=== PATIENT | male | born 1980 | race Two or more races ===

== ENCOUNTER 2018-12-18 09:17 | Emergency (ER) | payer MEDICAID, OTHER ==
[~2018-12-18] VITALS: Ht 190.5 cm; Wt 96.6 kg
[2018-12-18 09:28] VITALS: BP 147/100
[2018-12-18] MEDS ORDERED: KETOROLAC TROMETH 60MG/2ML VIAL IM ONE (11:15)
== END 2018-12-18 11:39 | disposition home or self-care (01) ==
LOC: ER 09:17
DX: M50.323 Other cervical disc degeneration at C6-C7 level (principal); M54.12 Radiculopathy, cervical region
CPT/HCPCS: 72040

== ENCOUNTER 2024-04-26 12:52 | Inpatient (IN) | payer MEDICAID ==
[~2024-04-26] VITALS: Ht 188 cm; Wt 70.7 kg
[2024-04-26 13:07] LABS: Basophils # (auto) 0 10 ^3/uL (0-0.2); Basophils % (auto) 0.8 % (0.0-2.0); Eosinophils # (auto) 0 10 ^3/uL (0-0.8); Eosinophils % (auto) 0.8 % (0.0-7.0); Hematocrit 47.1 % (41.0-53.0); Hemoglobin 16.2 g/dL (13.5-17.5); Lymphocytes # (auto) 1.7 10 ^3/uL (0.4-5.4); Lymphocytes % (auto) 46.7 % (10.0-50.0); Mean Corpuscular Hemoglobin 33.6 pg (28.0-32.0); Mean Corpuscular Hgb Conc. 34.3 g/dL (32.0-36.0); Mean Corpuscular Volume 97.8 fL (80.0-100.0); Monocytes # (auto) 0.3 10 ^3/uL (0-1.3); Monocytes % (auto) 8.5 % (0.0-12.0); Neutrophils # (auto) 1.6 10 ^3/uL (1.6-8.6); Neutrophils % (auto) 43.2 % (37.0-80.0); Nucleated Red Blood Cells % 0.3 %; Red Blood Cells 4.82 10^6/uL (4.5-5.90); Red Cell Distribution Width 14.4 % (11.8-14.3); White Blood Cell 3.7 10^3/uL (4.4-10.8)
[2024-04-26 13:25] LABS: Alanine Aminotransferase 184 U/L (7-40); Albumin 4.1 g/dL (3.2-4.8); Alkaline Phosphatase 292 U/L (46-116); Anion Gap 6 (5-15); Aspartate Aminotransferase 338 U/L (13-40); BUN/Creatinine Ratio 16.3 (10.0-20.0); Blood Urea Nitrogen 14 mg/dL (9-23); Calcium 8.5 mg/dL (8.5-10.1); Carbon Dioxide 23 mmol/L (20-30); Chloride 108 mmol/L (98-107); Glucose 179 mg/dL (74-106); Potassium 3.4 mmol/L (3.5-5.1); Sodium 137 mmol/L (136-145)
[2024-04-26 13:26] LABS: Bilirubin, Total 0.6 mg/dL (0.2-1.0); Total Protein 6.3 g/dL (5.7-8.2)
[2024-04-26 13:35] LABS: INR 1.24 (0.9-1.15); Partial Thromboplastin Time 27.3 SEC (24.5-34.5); Prothrombin Time 12.9 sec (9.3-11.8)
[2024-04-26] MEDS: ASPirin-EC 325mg tab PO ONE (14:41)
[2024-04-26] MEDS ORDERED: ONDANSETRON HCL 4 MG/2 ML VIAL IV PRN (16:00)
[2024-04-26] MEDS ORDERED: ACETAMINOPHEN 325 MG TAB PO PRN (16:00)
[2024-04-26] MEDS ORDERED: MORPHINE SULFATE INJ 2 MG/ml SYRG IV PRN (16:00)
[2024-04-26] MEDS ORDERED: NITROGLYCERIN 0.4 MG SL TAB SL PRN (16:00)
[2024-04-26] MEDS ORDERED: HYDROcodone-ACET 5/325MG TAB PO PRN (16:00)
[2024-04-26 16:28] LABS: Urine Bacteria None Seen /hpf (None Seen)
[2024-04-26 16:40] LABS: Urine Blood Negative /uL (Negative); Urine Clarity Clear (Clear); Urine Color Yellow (Yellow); Urine Mucus FEW (None Seen); Urine Protein, UAD TRACE (Negative); Urine Specific Gravity 1.028 (1.001-1.035); Urine Urobilinogen Normal (Negative); Urine WBC 1 /hpf (0 - 3); Urine pH 5.5 (5.0-9.0)
[2024-04-26 16:47] LABS: Amphetamine Screen, Urine Neg (NEGATIVE); Barbiturate Scree,Urine Neg (NEGATIVE); Benzodiazephine Screen, Urine Neg (NEGATIVE); Cocaine Screen, Urine Neg (NEGATIVE)
[2024-04-26 16:48] LABS: Cannabinoid Screen, Urine Neg (NEGATIVE); Opiate Scree,Urine Neg (NEGATIVE); Phencyclidine Screen, Urine Neg (NEGATIVE)
[2024-04-26 17:00] VITALS: BP 142/84; PULSE 72; RESP 18; TEMP 97.8; O2SAT 100
[2024-04-26] MEDS: MORPHINE SULFATE INJ 2 MG/ml SYRG IV PRN (17:40)
[2024-04-26 18:37] VITALS: PULSE 73
[2024-04-26 20:00] VITALS: PULSE 67; PULSE 70; RESP 17; O2SAT 99
[2024-04-26 22:00] VITALS: BP 134/79; PULSE 70; RESP 17; TEMP 98.1; O2SAT 99
[2024-04-27] VITALS (8 sets, daily range): BP systolic 126–145; BP diastolic 80–88; PULSE 52–63; RESP 16–18; TEMP 97.9–98.2; O2SAT 95–99
[2024-04-27 07:03] LABS: Basophils # (auto) 0 10 ^3/uL (0-0.2); Basophils % (auto) 0.8 % (0.0-2.0); Eosinophils # (auto) 0.1 10 ^3/uL (0-0.8); Eosinophils % (auto) 1.5 % (0.0-7.0); Hematocrit 42.2 % (41.0-53.0); Hemoglobin 14.3 g/dL (13.5-17.5); Lymphocytes # (auto) 1.8 10 ^3/uL (0.4-5.4); Lymphocytes % (auto) 48.9 % (10.0-50.0); Mean Corpuscular Hemoglobin 33.3 pg (28.0-32.0); Monocytes # (auto) 0.3 10 ^3/uL (0-1.3); Monocytes % (auto) 8.6 % (0.0-12.0); Neutrophils # (auto) 1.5 10 ^3/uL (1.6-8.6); Neutrophils % (auto) 40.2 % (37.0-80.0); Nucleated Red Blood Cells % 0.1 %; Red Blood Cells 4.31 10^6/uL (4.5-5.90); Red Cell Distribution Width 14.2 % (11.8-14.3); White Blood Cell 3.7 10^3/uL (4.4-10.8)
[2024-04-27 07:05] LABS: Alanine Aminotransferase 252 U/L (7-40); Albumin 3.1 g/dL (3.2-4.8); Alkaline Phosphatase 273 U/L (46-116); Anion Gap 7 (5-15); Aspartate Aminotransferase 550 U/L (13-40); BUN/Creatinine Ratio 10.3 (10.0-20.0); Blood Urea Nitrogen 7 mg/dL (9-23); Calcium 8.2 mg/dL (8.7-10.4); Carbon Dioxide 23 mmol/L (20-30); Chloride 103 mmol/L (98-107); Glucose 104 mg/dL (74-106); Potassium 3.5 mmol/L (3.5-5.1); Sodium 133 mmol/L (136-145)
[2024-04-27 07:06] LABS: Total Protein 5.4 g/dL (5.7-8.2)
[2024-04-27] MEDS ORDERED: COLC1CAP PO (07:12)
[2024-04-27] MEDS ORDERED: GABA-1250 PO (07:12)
[2024-04-27] MEDS ORDERED: TRAZ-227 PO (07:12)
[2024-04-27] MEDS ORDERED: PERCOT PO (07:12)
[2024-04-27] MEDS ORDERED: ALLO100T PO (07:12)
[2024-04-27] MEDS ORDERED: BUPR75TA89 GT (07:12)
[2024-04-27] MEDS: ENOXAPARIN SOD 40 MG/0.4 ML SYRINGE SC SCH (10:00)
== END 2024-04-27 18:52 | disposition home or self-care (01) | DRG 207 ==
LOC: ER 12:52 → TELE 15:52 → TELE-CENTR 16:56
PROVIDERS: ADMIT Internal Medicine; ATTEND Internal Medicine
DX: R00.2 Palpitations (principal); F17.210 Nicotine dependence, cigarettes, uncomplicated; I10 Essential (primary) hypertension; G89.29 Other chronic pain; M54.50 Low back pain, unspecified; J45.909 Unspecified asthma, uncomplicated; R79.89 Other specified abnormal findings of blood chemistry; Z91.148 Patient's other noncompliance with medication regimen for other reason; Z79.891 Long term (current) use of opiate analgesic; Z90.49 Acquired absence of other specified parts of digestive tract; Z80.1 Family history of malignant neoplasm of trachea, bronchus and lung
CPT/HCPCS: 36415; 71045; 76705; 80053; 80307; 81001; 84484; 85025; 85610; 85730; 87081; 93005; 93306; 99291; G0378

== ENCOUNTER 2024-05-17 11:07 | Observation (INO) | payer MEDICAID ==
[~2024-05-17] VITALS: Ht 188 cm; Wt 70.0 kg
[~2024-05-17 11:07] MED LIST: ALLO100T PO; BUPR75TA89 GT; COLC1CAP PO; GABA-1250 PO; TRAZ-227 PO
[2024-05-17 11:48] LABS: Basophils # (auto) 0 10 ^3/uL (0-0.2); Eosinophils # (auto) 0 10 ^3/uL (0-0.8); Lymphocytes # (auto) 1.3 10 ^3/uL (0.4-5.4); Neutrophils % (auto) 76.9 % (37.0-80.0)
[2024-05-17 11:49] LABS: Basophils % (auto) 0.5 % (0.0-2.0); Hematocrit 42.6 % (41.0-53.0); Hemoglobin 14.9 g/dL (13.5-17.5); Lymphocytes % (auto) 16.4 % (10.0-50.0); Mean Corpuscular Hemoglobin 34.4 pg (28.0-32.0); Mean Corpuscular Volume 98.4 fL (80.0-100.0); Monocytes # (auto) 0.5 10 ^3/uL (0-1.3); Monocytes % (auto) 6.2 % (0.0-12.0); Neutrophils # (auto) 6.3 10 ^3/uL (1.6-8.6); Red Blood Cells 4.33 10^6/uL (4.5-5.90); Red Cell Distribution Width 14.5 % (11.8-14.3); White Blood Cell 8.2 10^3/uL (4.4-10.8)
[2024-05-17 12:01] LABS: Alanine Aminotransferase 98 U/L (7-40); Alkaline Phosphatase 214 U/L (46-116); Anion Gap 12 (5-15); Aspartate Aminotransferase 137 U/L (13-40); Bilirubin, Total 0.6 mg/dL (0.2-1.0); Calcium 8.7 mg/dL (8.7-10.4); Carbon Dioxide 23 mmol/L (20-30); Chloride 97 mmol/L (98-107); Glucose 345 mg/dL (74-106); Sodium 132 mmol/L (136-145); Total Protein 6.4 g/dL (5.7-8.2)
[2024-05-17 12:12] LABS: Potassium 2.2 mmol/L (3.5-5.1)
[2024-05-17 12:22] LABS: BUN/Creatinine Ratio 10.2 (10.0-20.0); Blood Urea Nitrogen 9 mg/dL (9-23)
[2024-05-17 13:13] LABS: Urine Bacteria FEW /hpf (None Seen); Urine Blood TRACE /uL (Negative); Urine Clarity Clear (Clear); Urine Color Yellow (Yellow); Urine Mucus FEW (None Seen); Urine Protein, UAD 1+ (Negative); Urine Specific Gravity 1.039 (1.001-1.035); Urine Urobilinogen Normal (Negative); Urine WBC 5 /hpf (0 - 3)
[2024-05-17] MEDS: POTASSIUM EFFERVESENT TAB 25 MEQ PO ONE (13:25)
[2024-05-17] MEDS: SODIUM CHLORIDE 0.9% 1,000 ML IV ONE (13:37)
[2024-05-17] MEDS: InsuLIN REG 1unit/0.01ml Soln (100units/ml) IV ONE (13:46)
[2024-05-17] MEDS ORDERED: MORPHINE SULFATE INJ 2 MG/ml SYRG IV PRN (14:00)
[2024-05-17] MEDS ORDERED: NITROGLYCERIN 0.4 MG SL TAB SL PRN (14:00)
[2024-05-17] MEDS: POTASSIUM CHL 20MEQ/100ML 100 ML IV SCH (16:00)
[2024-05-17] MEDS: InsuLIN REG 1unit/0.01ml Soln (100units/ml) SC SCH (17:00)
[2024-05-17] MEDS: ACCU-CHEK COMFORT CURVE STRIP VI SCH (17:07)
[2024-05-17] MEDS: INSULIN LANTUS (GLARGINE) 1 /0.01ml (100units/ml) SC SCH (22:00)
[2024-05-18 00:36] LABS: Chloride 101 mmol/L (98-107); Potassium 2.6 mmol/L (3.5-5.1); Sodium 134 mmol/L (136-145)
[2024-05-18 00:37] LABS: Anion Gap 9 (5-15); Calcium 8.4 mg/dL (8.7-10.4); Carbon Dioxide 24 mmol/L (20-30)
[2024-05-18 00:42] LABS: Blood Urea Nitrogen 7 mg/dL (9-23)
[2024-05-18 00:43] LABS: Glucose 134 mg/dL (74-106)
[2024-05-18 02:00] VITALS: PULSE 68; RESP 16; O2SAT 96
[2024-05-18 03:00] VITALS: PULSE 70; RESP 16; O2SAT 95
[2024-05-18 07:22] VITALS: PULSE 67; PULSE 79; RESP 12; O2SAT 96
[2024-05-18] MEDS: OXYCODONE W/ ACETAMINOPHEN 5/325MG TABLET PO ONE (07:32)
[2024-05-18 08:46] LABS: Basophils # (auto) 0 10 ^3/uL (0-0.2); Basophils % (auto) 0.1 % (0.0-2.0); Eosinophils # (auto) 0 10 ^3/uL (0-0.8); Eosinophils % (auto) 0.2 % (0.0-7.0); Hemoglobin 11.4 g/dL (13.5-17.5); Monocytes # (auto) 0.4 10 ^3/uL (0-1.3); Neutrophils # (auto) 3.9 10 ^3/uL (1.6-8.6); Nucleated Red Blood Cells % 0.1 %; Red Cell Distribution Width 14.1 % (11.8-14.3); White Blood Cell 5.9 10^3/uL (4.4-10.8)
[2024-05-18 08:47] LABS: Hematocrit 31.7 % (41.0-53.0); Lymphocytes # (auto) 1.5 10 ^3/uL (0.4-5.4); Lymphocytes % (auto) 25.5 % (10.0-50.0); Mean Corpuscular Hgb Conc. 35.9 g/dL (32.0-36.0); Mean Corpuscular Volume 97.3 fL (80.0-100.0); Monocytes % (auto) 7.5 % (0.0-12.0); Neutrophils % (auto) 66.7 % (37.0-80.0); Red Blood Cells 3.25 10^6/uL (4.5-5.90)
[2024-05-18 08:53] LABS: Chloride 101 mmol/L (98-107); Sodium 134 mmol/L (136-145)
[2024-05-18 08:54] LABS: Anion Gap 8 (5-15); Carbon Dioxide 25 mmol/L (20-30)
[2024-05-18 08:59] LABS: BUN/Creatinine Ratio 10.8 (10.0-20.0); Blood Urea Nitrogen 7 mg/dL (9-23); Glucose 131 mg/dL (74-106)
[2024-05-18 09:02] LABS: Potassium 2.4 mmol/L (3.5-5.1)
[2024-05-18] MEDS: POTASSIUM CHL 20MEQ/100ML 100 ML IV SCH (11:00)
[2024-05-18] MEDS: SODIUM CHLORIDE 0.9% 1,000 ML IV ONE (15:38)
[2024-05-18 19:46] LABS: Creatinine, Urine 27.02 mg/dL (30.0-125.0)
[2024-05-18] MEDS ORDERED: OXYC325T14 (21:45)
[2024-05-18 22:13] VITALS: BP 131/72; PULSE 83; RESP 16; TEMP 99.4; O2SAT 98
[2024-05-18] MEDS: HYDROcodone-ACET 7.5/325MG TAB PO PRN (22:55)
[2024-05-18] MEDS: MAGNESIUM SULFATE 1GM/100ML 100 ML IV SCH (22:55)
[2024-05-18] MEDS: POTASSIUM CHL 20 Meq TABLET PO ONE (22:55)
[2024-05-19 05:00] VITALS: BP 120/64; PULSE 71; RESP 18; TEMP 98.1; O2SAT 97
[2024-05-19 06:06] LABS: Chloride 104 mmol/L (98-107); Sodium 137 mmol/L (136-145)
[2024-05-19 06:07] LABS: Anion Gap 4 (5-15); Carbon Dioxide 29 mmol/L (20-30)
[2024-05-19 06:12] LABS: Glucose 51 mg/dL (74-106)
[2024-05-19 06:13] LABS: Magnesium 1.8 mg/dL (1.6-2.6)
[2024-05-19 06:31] LABS: BUN/Creatinine Ratio 8.1 (10.0-20.0); Blood Urea Nitrogen < 5 mg/dL (9-23)
[2024-05-19 06:33] LABS: Potassium 2.4 mmol/L (3.5-5.1)
[2024-05-19 06:45] LABS: Basophils # (auto) 0 10 ^3/uL (0-0.2); Eosinophils # (auto) 0 10 ^3/uL (0-0.8); Eosinophils % (auto) 0.2 % (0.0-7.0); Hemoglobin 11.8 g/dL (13.5-17.5); Lymphocytes # (auto) 1.6 10 ^3/uL (0.4-5.4); Neutrophils # (auto) 4.4 10 ^3/uL (1.6-8.6); Red Blood Cells 3.38 10^6/uL (4.5-5.90); Red Cell Distribution Width 14.2 % (11.8-14.3)
[2024-05-19 06:46] LABS: Basophils % (auto) 0.1 % (0.0-2.0); Lymphocytes % (auto) 24.9 % (10.0-50.0); Mean Corpuscular Hemoglobin 34.9 pg (28.0-32.0); Mean Corpuscular Hgb Conc. 35.8 g/dL (32.0-36.0); Mean Corpuscular Volume 97.6 fL (80.0-100.0); Monocytes # (auto) 0.4 10 ^3/uL (0-1.3); Monocytes % (auto) 6.8 % (0.0-12.0); Nucleated Red Blood Cells % 0.2 %; White Blood Cell 6.4 10^3/uL (4.4-10.8)
[2024-05-19 09:00] VITALS: BP 137/76; PULSE 64; RESP 20; TEMP 98.6; O2SAT 100
[2024-05-19] MEDS: POTASSIUM CHL 20 Meq TABLET PO SCH (10:15)
[2024-05-19] MEDS: POTASSIUM CHL 20MEQ/100ML 100 ML IV ONE (10:47)
[2024-05-19 13:27] LABS: COVID19 ANTIGEN SOFIA FIA POSITIVE (NEGATIVE)
[2024-05-19 20:00] VITALS: PULSE 79; PULSE 88; RESP 18
[2024-05-19 21:00] VITALS: BP 115/71; PULSE 79; RESP 18; TEMP 98.3; O2SAT 97
[2024-05-20] VITALS (8 sets, daily range): BP systolic 114–121; BP diastolic 63–79; PULSE 50–91; RESP 17–18; TEMP 97.6–98.1; O2SAT 95–100
[2024-05-20 06:42] LABS: Anion Gap 5 (5-15); Carbon Dioxide 28 mmol/L (20-30); Chloride 105 mmol/L (98-107); Potassium 3.2 mmol/L (3.5-5.1); Sodium 138 mmol/L (136-145)
[2024-05-20 06:43] LABS: Calcium 8.2 mg/dL (8.7-10.4)
[2024-05-20 06:48] LABS: Glucose 61 mg/dL (74-106)
[2024-05-20 06:49] LABS: BUN/Creatinine Ratio 8.3 (10.0-20.0); Blood Urea Nitrogen < 5 mg/dL (9-23)
[2024-05-20] MEDS: DEXTROSE (50%) 50ML SYRG IV PRN (13:05)
[2024-05-20] MEDS: D5W/SOD CHL 0.45%/KCL 20MEQ 1,000 ML IV SCH (15:01)
[2024-05-21] VITALS (7 sets, daily range): BP systolic 91–107; BP diastolic 58–69; PULSE 54–80; RESP 16–18; TEMP 96.4–98.3; O2SAT 95–100
[2024-05-21] MEDS ORDERED: METF-370 PO (17:23)
== END 2024-05-21 20:17 | disposition home or self-care (01) ==
LOC: ER 11:07 → TELE 14:04 → INTOOBSV 14:04 → TELE-E-ADS 05-18 20:50 → TELE-EAST 05-19 22:50
PROVIDERS: ADMIT Internal Medicine; ATTEND Internal Medicine
DX: E11.649 Type 2 diabetes mellitus with hypoglycemia without coma (principal); E87.6 Hypokalemia; U07.1 COVID-19; E11.65 Type 2 diabetes mellitus with hyperglycemia; E11.40 Type 2 diabetes mellitus with diabetic neuropathy, unspecified; D64.9 Anemia, unspecified; D84.9 Immunodeficiency, unspecified; G89.4 Chronic pain syndrome; F41.9 Anxiety disorder, unspecified; I10 Essential (primary) hypertension; J45.909 Unspecified asthma, uncomplicated; K76.0 Fatty (change of) liver, not elsewhere classified; M10.9 Gout, unspecified; R00.2 Palpitations; F17.210 Nicotine dependence, cigarettes, uncomplicated; I49.9 Cardiac arrhythmia, unspecified; Z79.899 Other long term (current) drug therapy; Z98.890 Other specified postprocedural states
CPT/HCPCS: 36415; 71045; 76705; 80048; 80053; 81001; 82570; 82962; 83036; 83735; 84132; 84133; 84443; 84484; 85025; 87426; 93005; 96361; 96365; 96366; 96367; 96372; 96375; 99291; G0378; J1815; J3475; J3480; J7042

== ENCOUNTER 2024-08-17 11:02 | Inpatient (IN) | payer MEDICAID ==
[~2024-08-17] VITALS: Ht 188 cm; Wt 75.9 kg
[~2024-08-17 11:02] MED LIST changes: +METF-370 PO; +OXYC325T14
[2024-08-17 12:00] VITALS: PULSE 82; RESP 29; O2SAT 100
[2024-08-17 12:12] LABS: Basophils # (auto) 0 10 ^3/uL (0-0.2); Basophils % (auto) 0.4 % (0.0-2.0); Eosinophils # (auto) 0 10 ^3/uL (0-0.8); Eosinophils % (auto) 0.3 % (0.0-7.0); Hematocrit 24.8 % (41.0-53.0); Hemoglobin 8.8 g/dL (13.5-17.5); Lymphocytes # (auto) 0.9 10 ^3/uL (0.4-5.4); Lymphocytes % (auto) 14.9 % (10.0-50.0); Mean Corpuscular Hemoglobin 38.1 pg (28.0-32.0); Mean Corpuscular Hgb Conc. 35.5 g/dL (32.0-36.0); Mean Corpuscular Volume 107.1 fL (80.0-100.0); Monocytes # (auto) 0.5 10 ^3/uL (0-1.3); Monocytes % (auto) 8.1 % (0.0-12.0); Neutrophils # (auto) 4.9 10 ^3/uL (1.6-8.6); Neutrophils % (auto) 76.3 % (37.0-80.0); Nucleated Red Blood Cells % 0.1 %; Platelet Count (auto) 108 10^3/uL (140-450); Red Blood Cells 2.32 10^6/uL (4.5-5.90); Red Cell Distribution Width 17.2 % (11.8-14.3); White Blood Cell 6.4 10^3/uL (4.4-10.8)
[2024-08-17] MEDS: SODIUM CHLORIDE 0.9% 2,000 ML IV ONE (12:21)
[2024-08-17] MEDS: InsuLIN REG 1unit/0.01ml Soln (100units/ml) IV ONE (12:33)
[2024-08-17 13:25] LABS: Alanine Aminotransferase 78 U/L (7-40); Albumin 3.1 g/dL (3.2-4.8); Alkaline Phosphatase 486 U/L (46-116); Anion Gap 7 (5-15); Aspartate Aminotransferase 107 U/L (13-40); BUN/Creatinine Ratio 9.3 (10.0-20.0); Bilirubin, Total 4.3 mg/dL (0.2-1.0); Blood Urea Nitrogen 9 mg/dL (9-23); Calcium 8.5 mg/dL (8.7-10.4); Carbon Dioxide 28 mmol/L (20-31); Chloride 99 mmol/L (98-107); Glucose 294 mg/dL (74-106); Sodium 134 mmol/L (136-145); Total Protein 5.4 g/dL (5.7-8.2)
[2024-08-17] MEDS: POTASSIUM CHL 20 Meq TABLET PO ONE (15:57)
[2024-08-17 16:21] LABS: Urine Bacteria None Seen /hpf (None Seen)
[2024-08-17 16:30] LABS: Urine Blood Negative /uL (Negative); Urine Clarity Turbid (Clear); Urine Color Yellow (Yellow); Urine Mucus FEW (None Seen); Urine Protein, UAD 1+ (Negative); Urine Specific Gravity 1.016 (1.001-1.035); Urine Urobilinogen Normal (Negative); Urine WBC 4 /hpf (0 - 3)
[2024-08-17 19:30] VITALS: PULSE 82; RESP 12; O2SAT 99
[2024-08-17] MEDS ORDERED: ONDANSETRON HCL 4 MG/2 ML VIAL IV PRN (23:15)
[2024-08-17] MEDS ORDERED: NITROGLYCERIN 0.4 MG SL TAB SL PRN (23:15)
[2024-08-17] MEDS ORDERED: MORPHINE SULFATE INJ 2 MG/ml SYRG IV PRN (23:15)
[2024-08-17] MEDS ORDERED: DOCUSATE SOD 100 MG CAP PO PRN (23:15)
[2024-08-17] MEDS: SODIUM CHLORIDE 0.9% 1,000 ML IV SCH (23:19)
[2024-08-18] VITALS (10 sets, daily range): BP systolic 92–113; BP diastolic 39–70; PULSE 51–87; RESP 15–22; TEMP 97.9–98.5; O2SAT 96–100
[2024-08-18] MEDS ORDERED: DEXTROSE (50%) 50ML SYRG IV PRN (00:30)
[2024-08-18] MEDS: MORPHINE SULFATE INJ 2 MG/ml SYRG IV PRN (02:45)
[2024-08-18] MEDS ORDERED: INFLUENZA TRIVALENT 2024-2025 0.5 ML INJ IM ONE (03:00)
[2024-08-18] MEDS ORDERED: INFLUENZA TRIVALENT 2024-2025 0.5 ML INJ IM PRN (04:30)
[2024-08-18] MEDS ORDERED: INFLUENZA VIRUS VACCINE IM PRN (04:30)
[2024-08-18] MEDS: ACCU-CHEK COMFORT CURVE STRIP VI SCH (06:37)
[2024-08-18] MEDS: InsuLIN REG 1unit/0.01ml Soln (100units/ml) SC SCH (06:40)
[2024-08-18 06:51] LABS: Basophils # (auto) 0 10 ^3/uL (0-0.2); Basophils % (auto) 0.4 % (0.0-2.0); Eosinophils # (auto) 0 10 ^3/uL (0-0.8); Hemoglobin 7.4 g/dL (13.5-17.5); Lymphocytes # (auto) 1.3 10 ^3/uL (0.4-5.4); Monocytes # (auto) 0.2 10 ^3/uL (0-1.3); Nucleated Red Blood Cells % 0.2 %; Platelet Count (auto) 82 10^3/uL (140-450); White Blood Cell 3.6 10^3/uL (4.4-10.8)
[2024-08-18 06:58] LABS: Eosinophils % (auto) 0.8 % (0.0-7.0); Lymphocytes % (auto) 37.5 % (10.0-50.0); Mean Corpuscular Hemoglobin 38.3 pg (28.0-32.0); Mean Corpuscular Hgb Conc. 35.2 g/dL (32.0-36.0); Mean Corpuscular Volume 108.7 fL (80.0-100.0); Monocytes % (auto) 5.6 % (0.0-12.0); Neutrophils % (auto) 55.7 % (37.0-80.0); Red Blood Cells 1.93 10^6/uL (4.5-5.90)
[2024-08-18 06:59] LABS: Chloride 106 mmol/L (98-107); Sodium 138 mmol/L (136-145)
[2024-08-18 07:00] LABS: Anion Gap 4 (5-15); Calcium 7.5 mg/dL (8.7-10.4); Carbon Dioxide 28 mmol/L (20-31)
[2024-08-18 07:11] LABS: BUN/Creatinine Ratio 7.2 (10.0-20.0); Blood Urea Nitrogen < 5 mg/dL (9-23); Glucose 147 mg/dL (74-106)
[2024-08-18] MEDS: POTASSIUM CHL 20 Meq TABLET PO ONE (11:12)
[2024-08-18] MEDS: POTASSIUM CHL 20MEQ/100ML 100 ML IV SCH (11:12)
[2024-08-18 20:33] LABS: Alanine Aminotransferase 70 U/L (7-40); Alkaline Phosphatase 435 U/L (46-116); Anion Gap 8 (5-15); Aspartate Aminotransferase 93 U/L (13-40); Calcium 8.2 mg/dL (8.7-10.4); Carbon Dioxide 24 mmol/L (20-31); Chloride 106 mmol/L (98-107); Glucose 123 mg/dL (74-106); Potassium 2.7 mmol/L (3.5-5.1); Sodium 138 mmol/L (136-145); Total Protein 5.6 g/dL (5.7-8.2)
[2024-08-18 21:35] LABS: BUN/Creatinine Ratio 6.2 (10.0-20.0); Blood Urea Nitrogen < 5 mg/dL (9-23)
[2024-08-19] VITALS (8 sets, daily range): BP systolic 92–109; BP diastolic 50–61; PULSE 66–86; RESP 14–21; TEMP 98.1–98.8; O2SAT 95–99
[2024-08-19 05:29] LABS: Basophils # (auto) 0 10 ^3/uL (0-0.2); Basophils % (auto) 0.5 % (0.0-2.0); Hemoglobin 7.4 g/dL (13.5-17.5); Lymphocytes # (auto) 1.4 10 ^3/uL (0.4-5.4); Monocytes # (auto) 0.3 10 ^3/uL (0-1.3); Nucleated Red Blood Cells % 0.1 %; Platelet Count (auto) 96 10^3/uL (140-450); White Blood Cell 4.1 10^3/uL (4.4-10.8)
[2024-08-19 05:31] LABS: Eosinophils # (auto) 0.1 10 ^3/uL (0-0.8); Eosinophils % (auto) 1.3 % (0.0-7.0); Hematocrit 21.5 % (41.0-53.0); Lymphocytes % (auto) 33.8 % (10.0-50.0); Mean Corpuscular Hgb Conc. 34.6 g/dL (32.0-36.0); Mean Corpuscular Volume 109.8 fL (80.0-100.0); Monocytes % (auto) 6.4 % (0.0-12.0); Neutrophils # (auto) 2.4 10 ^3/uL (1.6-8.6); Red Blood Cells 1.96 10^6/uL (4.5-5.90)
[2024-08-19 05:32] LABS: Chloride 108 mmol/L (98-107); Potassium 2.6 mmol/L (3.5-5.1); Sodium 139 mmol/L (136-145)
[2024-08-19 05:33] LABS: Anion Gap 4 (5-15); Carbon Dioxide 27 mmol/L (20-31)
[2024-08-19 05:34] LABS: Calcium 7.7 mg/dL (8.7-10.4)
[2024-08-19 05:39] LABS: Glucose 102 mg/dL (74-106)
[2024-08-19 05:41] LABS: BUN/Creatinine Ratio 7.7 (10.0-20.0); Blood Urea Nitrogen < 5 mg/dL (9-23)
[2024-08-19] MEDS: POTASSIUM CHL 20MEQ/100ML 100 ML IV SCH (11:58)
[2024-08-19 12:36] LABS: Chloride 107 mmol/L (98-107); Potassium 2.7 mmol/L (3.5-5.1); Sodium 138 mmol/L (136-145)
[2024-08-19 12:37] LABS: Anion Gap 4 (5-15); Calcium 7.7 mg/dL (8.7-10.4); Carbon Dioxide 27 mmol/L (20-31)
[2024-08-19 12:40] LABS: INR 1.31 (0.9-1.15); Prothrombin Time 13.6 sec (9.3-11.8)
[2024-08-19 12:42] LABS: Glucose 121 mg/dL (74-106)
[2024-08-19 12:51] LABS: BUN/Creatinine Ratio 7.9 (10.0-20.0); Blood Urea Nitrogen < 5 mg/dL (9-23)
[2024-08-19] MEDS ORDERED: PROPOFOL 10 MG/ML 20 ML IV ONE (13:09)
[2024-08-19] MEDS ORDERED: LIDOCAINE 2% (LOCAL ANESTH.) PF 5ml SDV ONE (13:09)
[2024-08-19] MEDS: POTASSIUM EFFERVESENT TAB 25 MEQ PO ONE (15:44)
[2024-08-19] MEDS: PANTOPRAZOLE 40 MG TAB PO SCH (16:34)
[2024-08-19] MEDS: NYSTATIN (MOUTH-THROAT) 500,000 UNITS/5 ML SUSP MT SCH (17:31)
[2024-08-19] MEDS: SUCRALFATE 1 GM/10 ML ORAL SUSP PO SCH (21:21)
[2024-08-20 01:00] VITALS: BP 92/54; PULSE 82; RESP 17; TEMP 98.5; O2SAT 98
[2024-08-20 05:00] VITALS: BP 93/53; PULSE 81; RESP 16; TEMP 98.7; O2SAT 98
[2024-08-20 06:38] LABS: Basophils # (auto) 0 10 ^3/uL (0-0.2); Eosinophils # (auto) 0.1 10 ^3/uL (0-0.8); Hematocrit 22.5 % (41.0-53.0); Hemoglobin 7.7 g/dL (13.5-17.5); Lymphocytes # (auto) 1.5 10 ^3/uL (0.4-5.4); Monocytes # (auto) 0.3 10 ^3/uL (0-1.3)
[2024-08-20 06:41] LABS: Basophils % (auto) 0.7 % (0.0-2.0); Eosinophils % (auto) 1.5 % (0.0-7.0); Lymphocytes % (auto) 38.3 % (10.0-50.0); Mean Corpuscular Hemoglobin 38.3 pg (28.0-32.0); Mean Corpuscular Volume 112.5 fL (80.0-100.0); Monocytes % (auto) 7.9 % (0.0-12.0); Neutrophils % (auto) 51.6 % (37.0-80.0); Nucleated Red Blood Cells % 0.1 %; Platelet Count (auto) 109 10^3/uL (140-450); Red Cell Distribution Width 18.9 % (11.8-14.3); White Blood Cell 3.9 10^3/uL (4.4-10.8)
[2024-08-20 06:46] LABS: Chloride 106 mmol/L (98-107); Potassium 3.5 mmol/L (3.5-5.1); Sodium 136 mmol/L (136-145)
[2024-08-20 06:47] LABS: Calcium 7.9 mg/dL (8.7-10.4)
[2024-08-20 06:52] LABS: Glucose 187 mg/dL (74-106)
[2024-08-20 06:56] LABS: Blood Urea Nitrogen < 5 mg/dL (9-23)
[2024-08-20 07:25] LABS: Anion Gap 4 (5-15); Carbon Dioxide 26 mmol/L (20-31)
[2024-08-20 07:33] VITALS: PULSE 69
[2024-08-20 08:25] VITALS: PULSE 95; RESP 17; O2SAT 98
[2024-08-20 09:02] LABS: Hepatitis B Core Total AB Negative (Negative)
[2024-08-20 09:39] LABS: Hepatitis A Total Antibody Negative (Negative); Hepatitis B Surface Antibody Negative (Negative); Hepatitis B Surface Antigen Negative (Negative); Hepatitis C Antibody Negative (Negative)
[2024-08-20 13:09] VITALS: BP 101/66; PULSE 81; RESP 19; TEMP 97.6; O2SAT 99
[2024-08-20] MEDS ORDERED: SUCR1SUS26 PO ×2 (15:45)
[2024-08-20] MEDS ORDERED: NYS5LQ MT ×2 (15:45)
[2024-08-20] MEDS ORDERED: PANT40T PO ×2 (15:45)
[2024-08-20 16:15] VITALS: BP 106/61; PULSE 83; RESP 19; TEMP 98.4; O2SAT 97
== END 2024-08-20 17:02 | disposition home or self-care (01) | DRG 242 ==
LOC: ER 11:02 → TELE 23:04 → TELE-E-ADS 08-18 02:09
PROVIDERS: ADMIT Nurse Practitioner Family; ATTEND Internal Medicine
PROC: 0DB68ZX Excision of Stomach, Via Natural or Artificial Opening Endoscopic, Diagnostic (ICD-10-PCS; 2024-08-19)
PROC: 0DB18ZX Excision of Upper Esophagus, Via Natural or Artificial Opening Endoscopic, Diagnostic (ICD-10-PCS; 2024-08-19)
PROC: 0DB98ZX Excision of Duodenum, Via Natural or Artificial Opening Endoscopic, Diagnostic (ICD-10-PCS; principal; 2024-08-19 13:10)
DX: B37.81 Candidal esophagitis (principal); K86.2 Cyst of pancreas; E87.1 Hypo-osmolality and hyponatremia; K86.89 Other specified diseases of pancreas; K22.10 Ulcer of esophagus without bleeding; K86.1 Other chronic pancreatitis; R59.1 Generalized enlarged lymph nodes; E87.6 Hypokalemia; D64.9 Anemia, unspecified; I10 Essential (primary) hypertension; F17.210 Nicotine dependence, cigarettes, uncomplicated; R74.01 Elevation of levels of liver transaminase levels; J45.909 Unspecified asthma, uncomplicated; K44.9 Diaphragmatic hernia without obstruction or gangrene; E80.6 Other disorders of bilirubin metabolism; Z79.899 Other long term (current) drug therapy
CPT/HCPCS: 36415; 74176; 74181; 80048; 80053; 81001; 82962; 83036; 83690; 85025; 85610; 86704; 86706; 86708; 86803; 87081; 87340; 90656; 93005; 99291; G0378; J1815; J2003; J2704; J3480

== ENCOUNTER 2024-08-24 12:43 | Inpatient (IN) | payer MEDICAID ==
[~2024-08-24] VITALS: Ht 188 cm; Wt 80.0 kg
[~2024-08-24 12:43] MED LIST changes: +NYS5LQ MT; +PANT40T PO; +SUCR1SUS26 PO
[2024-08-24 14:18] LABS: Hematocrit 33.7 % (41.0-53.0); Hemoglobin 11.4 g/dL (13.5-17.5); Mean Corpuscular Hemoglobin 37.5 pg (28.0-32.0); Mean Corpuscular Hgb Conc. 33.8 g/dL (32.0-36.0); Mean Corpuscular Volume 111.2 fL (80.0-100.0); Platelet Count (auto) 260 10^3/uL (140-450); Red Blood Cells 3.03 10^6/uL (4.5-5.90); Red Cell Distribution Width 18.7 % (11.8-14.3); White Blood Cell 6.2 10^3/uL (4.4-10.8)
[2024-08-24 14:23] LABS: Basophils % (manual) 0 (0.0-2.0); Blast Cells 0; Metamyelocytes % 0; Myelocytes % 0; Promyelocytes % 0; Reactive Lymphocytes 0
[2024-08-24 14:31] LABS: Alanine Aminotransferase 55 U/L (7-40); Alkaline Phosphatase 325 U/L (46-116); Anion Gap 7 (5-15); Aspartate Aminotransferase 59 U/L (13-40); BUN/Creatinine Ratio 5.6 (10.0-20.0); Blood Urea Nitrogen 6 mg/dL (9-23); Calcium 8.1 mg/dL (8.7-10.4); Carbon Dioxide 21 mmol/L (20-31); Chloride 106 mmol/L (98-107); Sodium 134 mmol/L (136-145)
[2024-08-24 14:32] LABS: Albumin 3.2 g/dL (3.2-4.8); Bilirubin, Total 1.7 mg/dL (0.2-1.0); Total Protein 5.9 g/dL (5.7-8.2)
[2024-08-24 14:35] LABS: Glucose 403 mg/dL (74-106); Potassium 2.3 mmol/L (3.5-5.1)
[2024-08-24 14:44] LABS: Band Neutrophils % (manual) 5; Eosinophils % (manual) 1 (0-7); Lymphocytes % (manual) 18 (10.0-50.0); Monocytes % (manual) 7 (0-12)
[2024-08-24 14:45] LABS: Anisocytosis Slight; Macrocytosis Marked; Platelet Estimate Adequate
[2024-08-24] MEDS: POTASSIUM CHL 20MEQ/100ML 100 ML IV SCH ×2 (14:45→23:45)
[2024-08-24] MEDS: MAGNESIUM SULFATE 1GM/100ML 100 ML IV ONE (14:45)
[2024-08-24] MEDS ORDERED: NITROGLYCERIN 0.4 MG SL TAB SL PRN (16:30)
[2024-08-24] MEDS ORDERED: ONDANSETRON HCL 4 MG/2 ML VIAL IV PRN (16:30)
[2024-08-24 16:40] VITALS: PULSE 80; RESP 17; O2SAT 100
[2024-08-24] MEDS: POTASSIUM CHL 20 Meq TABLET PO ONE (16:58)
[2024-08-24] MEDS: InsuLIN REG 1unit/0.01ml Soln (100units/ml) SC SCH ×2 (17:00→22:00)
[2024-08-24] MEDS: PANTOPRAZOLE 40 MG TAB PO SCH (17:00)
[2024-08-24] MEDS: ACCU-CHEK COMFORT CURVE STRIP VI SCH (17:00)
[2024-08-24] MEDS: MAGNESIUM SULFATE 1GM/100ML 100 ML IV SCH (17:00)
[2024-08-24] MEDS: NYSTATIN (MOUTH-THROAT) 500,000 UNITS/5 ML SUSP MT SCH (18:00)
[2024-08-24 20:46] VITALS: PULSE 80; RESP 17; O2SAT 100
[2024-08-24 20:52] LABS: Magnesium 2.4 mg/dL (1.6-2.6)
[2024-08-24 20:56] LABS: Potassium 2.5 mmol/L (3.5-5.1)
[2024-08-24 21:42] VITALS: BP 129/76; PULSE 105; RESP 20; TEMP 98.5; O2SAT 100
[2024-08-24] MEDS: MORPHINE SULFATE INJ 2 MG/ml SYRG IV PRN (21:45)
[2024-08-24] MEDS: GABAPENTIN 300 MG CAP PO SCH (22:00)
[2024-08-24] MEDS: INSULIN LANTUS (GLARGINE) 1 /0.01ml (100units/ml) SC SCH (22:00)
[2024-08-24] MEDS: buPROPion HCL 75 MG TAB PO SCH (22:00)
[2024-08-24] MEDS: MAGNESIUM OXIDE 400 MG TAB PO SCH (22:01)
[2024-08-24] MEDS: traZODone HCL 50 MG TAB PO SCH (22:01)
[2024-08-24] MEDS: SUCRALFATE 1 GM/10 ML ORAL SUSP PO SCH (22:01)
[2024-08-24 22:13] VITALS: BP 129/76; PULSE 105; RESP 16; TEMP 98.5; O2SAT 100
[2024-08-24] MEDS: ALLOPURINOL 100 MG TAB PO ONE (22:38)
[2024-08-25] VITALS (8 sets, daily range): BP systolic 116–139; BP diastolic 69–74; PULSE 16–93; RESP 15–18; TEMP 97.7–98.4; O2SAT 99–100
[2024-08-25 01:33] LABS: INR 1.27 (0.9-1.15); Prothrombin Time 13.2 sec (9.3-11.8)
[2024-08-25] MEDS: FOLIC ACID 1 MG, MAGNESIUM SULF SDV 50% 8 MEQ, MULTIPLE VITAMIN 10 ML, THIAMINE INJ 100... INJ SCH (04:45)
[2024-08-25 06:49] LABS: Anion Gap 9 (5-15); Carbon Dioxide 20 mmol/L (20-31); Chloride 106 mmol/L (98-107); Potassium 2.9 mmol/L (3.5-5.1); Sodium 135 mmol/L (136-145)
[2024-08-25 06:50] LABS: Calcium 7.6 mg/dL (8.7-10.4)
[2024-08-25 06:55] LABS: BUN/Creatinine Ratio 7.5 (10.0-20.0); Blood Urea Nitrogen 6 mg/dL (9-23)
[2024-08-25 06:56] LABS: Glucose 144 mg/dL (74-106); Magnesium 2.4 mg/dL (1.6-2.6)
[2024-08-25 09:06] LABS: Urine Bacteria None Seen /hpf (None Seen)
[2024-08-25 09:29] LABS: Urine Blood Negative /uL (Negative); Urine Clarity Clear (Clear); Urine Color Yellow (Yellow); Urine Hyaline Cast FEW /lpf (0 - 2); Urine Mucus FEW (None Seen); Urine Protein, UAD Negative (Negative); Urine Specific Gravity 1.019 (1.001-1.035); Urine Urobilinogen Normal (Negative); Urine WBC 2 /hpf (0 - 3); Urine pH 5.5 (5.0-9.0)
[2024-08-25 09:37] LABS: Amphetamine Screen, Urine Neg (NEGATIVE); Barbiturate Scree,Urine Neg (NEGATIVE); Benzodiazephine Screen, Urine Neg (NEGATIVE); Cocaine Screen, Urine Neg (NEGATIVE)
[2024-08-25 09:38] LABS: Cannabinoid Screen, Urine Neg (NEGATIVE); Opiate Scree,Urine Pos (NEGATIVE); Phencyclidine Screen, Urine Neg (NEGATIVE)
[2024-08-25] MEDS: POTASSIUM CHL 20 Meq TABLET PO ONE ×3 (09:51→23:33)
[2024-08-25] MEDS: ALLOPURINOL 100 MG TAB PO SCH (09:51)
[2024-08-25] MEDS ORDERED: POTASSIUM CHL 20 Meq TABLET PO ONE (12:00)
[2024-08-25] MEDS: THIAMINE HCL 100 MG TAB PO ONE (14:06)
[2024-08-25] MEDS: POTASSIUM CHLORIDE 20 MEQ, LIDOCAINE 1% (LOCAL ANESTH.) 2 ML in SODIUM CHL 0.9% 100 ML IV ONE (14:07)
[2024-08-25 16:54] LABS: Body Fluid Polymorphonuclear 24 % (0-25); Body Fluid Red Blood Cells 51 CUMM (0-2000); Body Fluid White Blood Cells 279 CUMM (0-200)
[2024-08-25] MEDS: DOXYCYCLINE 100 MG TAB/CAP PO SCH (17:01)
[2024-08-25] MEDS ORDERED: levoFLOXacin 250 MG TAB PO SCH (22:00)
[2024-08-26] VITALS (8 sets, daily range): BP systolic 101–125; BP diastolic 62–73; PULSE 67–102; RESP 17–18; TEMP 97.4–98.4; O2SAT 99–100
[2024-08-26] MEDS: DOXYCYCLINE 100 MG TAB/CAP PO SCH (06:23)
[2024-08-26 09:56] LABS: Alanine Aminotransferase 57 U/L (7-40); Alkaline Phosphatase 373 U/L (46-116); Anion Gap 7 (5-15); Calcium 8.1 mg/dL (8.7-10.4); Carbon Dioxide 22 mmol/L (20-31); Chloride 105 mmol/L (98-107); Glucose 145 mg/dL (74-106); Potassium 2.8 mmol/L (3.5-5.1); Sodium 134 mmol/L (136-145)
[2024-08-26] MEDS: FOLIC ACID 1 MG TAB PO SCH (09:57)
[2024-08-26 09:58] LABS: Albumin 2.8 g/dL (3.2-4.8); Aspartate Aminotransferase 87 U/L (13-40)
[2024-08-26] MEDS: MULTIPLE VITAMIN TAB PO SCH (09:58)
[2024-08-26] MEDS: THIAMINE HCL 100 MG TAB PO SCH (09:58)
[2024-08-26 09:59] LABS: Bilirubin, Total 1.6 mg/dL (0.2-1.0)
[2024-08-26] MEDS ORDERED: THIAMINE HCL 100 MG TAB PO SCH (10:00)
[2024-08-26] MEDS ORDERED: MAGNESIUM OXIDE 400 MG TAB PO SCH (10:00)
[2024-08-26 10:16] LABS: BUN/Creatinine Ratio 5.3 (10.0-20.0); Blood Urea Nitrogen < 5 mg/dL (9-23)
[2024-08-26 13:07] LABS: Protein, Body Fluid 0.6 g/dL (.)
[2024-08-26] MEDS: POTASSIUM CHL 20 Meq TABLET PO ONE (14:16)
[2024-08-26] MEDS ORDERED: METF-370 PO ×2 (14:37)
[2024-08-26] MEDS ORDERED: SPIR25TA PO ×2 (14:37)
[2024-08-26] MEDS ORDERED: ALLO100T PO ×2 (14:37)
[2024-08-26] MEDS ORDERED: PANT40T PO ×2 (14:37)
[2024-08-26] MEDS ORDERED: SUCR1SUS26 PO ×2 (14:37)
[2024-08-26] MEDS ORDERED: TRAZ-227 PO ×2 (14:37)
[2024-08-26] MEDS: POTASSIUM CHLORIDE 20 MEQ, LIDOCAINE 1% (LOCAL ANESTH.) 2 ML in SODIUM CHL 0.9% 100 ML IV ONE (15:48)
[2024-08-26] MEDS: DEXTROSE (50%) 50ML SYRG IV PRN (17:20)
[2024-08-26] MEDS: MORPHINE SULFATE INJ 2 MG/ml SYRG IV PRN (22:46)
[2024-08-27 01:00] VITALS: BP 114/70; PULSE 93; RESP 16; TEMP 98.5; O2SAT 99
[2024-08-27 05:00] VITALS: BP 98/56; PULSE 84; RESP 18; TEMP 98; O2SAT 100
[2024-08-27 08:00] VITALS: PULSE 71
[2024-08-27 08:41] VITALS: BP 109/69; PULSE 87; RESP 17; TEMP 98.1; O2SAT 100
[2024-08-27 12:49] VITALS: BP 103/64; PULSE 81; RESP 16; TEMP 98.2; O2SAT 100
[2024-08-27 15:05] VITALS: BP 103/64; PULSE 81; RESP 16; TEMP 98.2; O2SAT 100
== END 2024-08-27 16:40 | disposition home or self-care (01) ==
LOC: EDBD 12:43 → ER 12:53 → TELE 16:18 → TELE-E-ADS 21:05
PROVIDERS: ADMIT Hospitalist; ATTEND Hospitalist
PROC: 0W9G3ZZ Drainage of Peritoneal Cavity, Percutaneous Approach (ICD-10-PCS; principal; 2024-08-25)
DX: K74.60 Unspecified cirrhosis of liver (principal); R18.8 Other ascites; E87.6 Hypokalemia; E11.65 Type 2 diabetes mellitus with hyperglycemia; K86.1 Other chronic pancreatitis; F10.129 Alcohol abuse with intoxication, unspecified; J45.909 Unspecified asthma, uncomplicated; I10 Essential (primary) hypertension; F17.210 Nicotine dependence, cigarettes, uncomplicated; Y90.9 Presence of alcohol in blood, level not specified; Z80.1 Family history of malignant neoplasm of trachea, bronchus and lung; Z79.84 Long term (current) use of oral hypoglycemic drugs; Z79.4 Long term (current) use of insulin
CPT/HCPCS: 36415; 49083; 74176; 76942; 80048; 80053; 80307; 80320; 81001; 82962; 83735; 83880; 83986; 84132; 85007; 85027; 85048; 85610; 87045; 87205; 87427; 89051; 93005; 96365; 96372; 99291; G0378; J1815; J2003; J3480